=== PATIENT | male | born 2000 | race Two or more races ===

== ENCOUNTER 2024-03-07 14:17 | Emergency (ER) | payer MEDICAID ==
[~2024-03-07] VITALS: Ht 162.6 cm; Wt 81.6 kg
[2024-03-07 18:34] VITALS: BP 117/75; PULSE 73; RESP 18; TEMP 98.4; O2SAT 97
[2024-03-07] MEDS ORDERED: IBUP-1455 PO (19:03)
[2024-03-07] MEDS: KETOROLAC TROMETH 30 MG/ML 1ML VIAL IM ONE (19:06)
== END 2024-03-07 19:25 | disposition home or self-care (01) ==
LOC: ER 14:17
DX: M25.511 Pain in right shoulder (principal)
CPT/HCPCS: 73030; 96372; 99283; J1885